=== PATIENT | male | born 1965 ===

== ENCOUNTER 2018-10-19 10:22 | Outpatient (CLI) | payer OTHER ==
[~2018-10-19] VITALS: Ht 177.8 cm; Wt 81.6 kg
[2018-10-19] MEDS ORDERED: LIPO-FLAVONOID1 EACH PO (12:48)
== END 2018-10-19 10:40 | disposition home or self-care (01) ==
LOC: OFIC 805 10:22
DX: R42 Dizziness and giddiness (principal); H61.21 Impacted cerumen, right ear; J31.0 Chronic rhinitis

== ENCOUNTER 2020-09-30 13:05 | Outpatient (CLI) | payer OTHER ==
[~2020-09-30 13:05] MED LIST: LIPO-FLAVONOID1 EACH PO
== END 2020-09-30 14:42 | disposition home or self-care (01) ==
LOC: OFIC 805 13:05
PROVIDERS: ATTEND Otolaryngology Otology & Neurotology
DX: J31.0 Chronic rhinitis (principal); H60.391 Other infective otitis externa, right ear; H61.21 Impacted cerumen, right ear